=== PATIENT | male | born 1975 | race Caucasian/White ===

== ENCOUNTER 2016-10-16 09:12 | Emergency (ER) | payer BC ==
--- OUTSIDE RECORDS SUMMARY | 2016-10-16 10:22 | XMS REPORT | CCD ---
:1975 Author Name AYLIN CASTELLON Address [address] Unavailable [place], [place] [id number] Care Team Providers Name Role Phone ADY CORCORAN Attending Physician Unavailable Vital Signs Unknown or Not Available. Allergies Allergy Code Allergy Type Reaction Status SULFA (sulfonamide) 0 Drug allergy Active Procedures Procedure Code Procedure Type Date SHOULDER 2 OR 3 VWS [place] [id number] [address] 03/03/2015 History of Immunizations Unknown or Not Available. Problems Unknown or Not Available. Results Unknown or Not Available. Active Medications Unknown or Not Available. Medications Administered During Visit Unknown or Not Available. Encounters Encounter Diagnosis Diagnosis Code Start Date Impingement syndrome of right shoulder [id number] 03/03/2015 Social History Smoking Status Code Start Date End Date Former smoker [id number] Patient Decision Aids Unknown or Not Available. Discharge Instructions You were admitted to [facility] on 03/03/2015 with a principal diagnosis of Impingement syndrome of right shoulder. You were discharged from [facility] on 03/03/2015. Should you have any questions prior to discharge, please contact a member of your healthcare team. If you have left the hospital and have any questions, please contact your primary care physician. Chief Complaint and Reason For Visit Unknown or Not Available. Function Status Unknown or Not Available. Plan of Care Unknown or Not Available. Referral/Transition of Care Unknown or Not Available.
[2016-10-16] MEDS ORDERED: DIATRIZOATE MEGLU/DIATRIZO SOD 30 ML BTL ONE (10:38)
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
[2016-10-16 10:44] LABS: Hematocrit 46.4 % (42.0-52.0); Hemoglobin 15.8 gm/dL (13.5-18.0); Mean Cell Volume 87.7 fl (78-100); Mean Corpuscular Hemoglobin 29.9 pg (27-31); Mean Corpuscular Hgb Conc 34.1 g/dl (32-36); Mean Platelet Volume 11.1 fl (6.0-9.5); Neutrophil # 5.3 K/mm3 (1.3-6.0); Neutrophil % 64.1 % (42-75.0); Platelet Count 206 K/mm3 (150-450); Red Blood Count 5.29 M/mm3 (4.7-6.0); Red Cell Distribution Width 13.3 % (11.5-14.0); White Blood Count 8.2 K/mm3 (4.0-10.5)
[2016-10-16] MEDS ORDERED: DIATRIZOATE MEGLU/DIATRIZO SOD 30 ML BTL PO ONE (10:44)
[2016-10-16 10:58] LABS: Anion Gap 10.6 mmol/L (6.8-13.8); BUN/Creatinine Ratio 8.3 (9.0-21.6); Bilirubin, Total 0.6 mg/dL (0.0-1.1); CRP 0.5 mg/dL (0.0-0.9); Ca. Corrected For Albumin 9.4 mg/dL (8.4-10.2); Calcium * 9.7 mg/dL (7.9-10.9); Carbon Dioxide 30.2 mmol/L (24-32.6); Potassium 4.8 mmol/L (3.4-4.6); Total Protein 7.8 gm/dL (6.2-8.2)
[2016-10-16 13:18] VITALS: BP 148/85
[2016-10-16 13:33] LABS: Urine Appearance Clear; Urine Bilirubin Negative (NEGATIVE); Urine Blood Negative /ul (NEGATIVE); Urine Color Yellow; Urine Ketone Negative (NEGATIVE); Urine Nitrite Negative (NEGATIVE); Urine Protein Negative (NEGATIVE); Urine Specific Gravity 1.005 SP.GR. (1.005-1.030); Urine Urobilinogen Normal (NORMAL)
[2016-10-16 13:34] LABS: Urine Bacteria None Seen; Urine RBC None Seen /hpf (0-5); Urine WBC None Seen /hpf (0-5)
== END 2016-10-16 13:58 | disposition home or self-care (01) ==
LOC: MERGE 09:12 → ER 09:12
DX: R10.32 Left lower quadrant pain (principal); R19.7 Diarrhea, unspecified; K21.9 Gastro-esophageal reflux disease without esophagitis; F41.9 Anxiety disorder, unspecified; Z72.0 Tobacco use

== ENCOUNTER 2017-02-14 13:11 | Emergency (ER) | payer OTHER, BC ==
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
[2017-02-14 15:14] VITALS: BP 127/81
== END 2017-02-14 14:35 | disposition home or self-care (01) ==
LOC: ER 13:11
DX: S42.024A Nondisplaced fracture of shaft of right clavicle, initial encounter for closed fracture (principal); S43.401A Unspecified sprain of right shoulder joint, initial encounter; X58.XXXA Exposure to other specified factors, initial encounter; Y93.89 Activity, other specified; Y92.410 Unspecified street and highway as the place of occurrence of the external cause; Y99.0 Civilian activity done for income or pay; K21.9 Gastro-esophageal reflux disease without esophagitis; F41.9 Anxiety disorder, unspecified

== ENCOUNTER 2018-05-22 10:28 | Observation (INO) ==
[2018-05-22] MEDS ORDERED: KETOROLAC TROMETHAMINE 30 MG/ML VIAL IV ONE (10:51)
[2018-05-22] MEDS ORDERED: DIATRIZOATE MEGLUMINE, SODIUM 30 ML BTL PO ONE (10:51)
[2018-05-22] MEDS ORDERED: ONDANSETRON HCL/PF 2 MG/ML VIAL IV ONE (10:51)
--- NOTE | 2018-05-22 10:57 | ERNOTE ---
Abdominal HPI - General Chief Complaint: Abdominal Pain Time Seen by Provider: 05/22/18 10:42 Source: patient Exam Limitations: no limitations - Immun/Allergies/Home Medications Immunizatons: IMMUNIZATION HX Immunizations Up to Date Yes History of Influenza Vaccine No Hx Pneumococcal Vaccination No Allergies/Adverse Reactions: Allergies Sulfa (Sulfonamide Antibiotics) Allergy (Unknown, Verified 05/22/18 10:40) unknown Home Medications: HOME MEDICATIONS ALPRAZolam [Xanax] 0.5 mg PO Q6H PRN 11/16/17 [Last Taken 11/16/17] clonazePAM [Klonopin] 1 mg PO DAILY 11/16/17 [Last Taken 11/15/17] - History of Present Illness Narrative: Patient started to have midabdominal pain around 03:00, the pain moved to his right lower quadrant, he is nauseated, no vomiting. He had two prior episodes of early appendicitis, last in 2016 and was treated with antibiotics and symptoms resolved, symptoms feel the same as with prior episodes. Date (Duration): 05/22/18 Time (Timing): 03:00 Timing: constant Quality: moderate, burning, sharpness Activities at Onset: none Modifying Factors - (Improves): Present: other - nothing Modifying Factors - (Worsens): Present: breathing, movement Associated Symptoms: Present: nausea. Absent: chest pain, fever/chills, vomiting, shortness of breath Prior Abdominal Problems: Present: similar symptoms Review of Systems - Review of Systems Constitutional: Absent: recent illness, fever ENT: Absent: nose congestion, sore throat Respiratory: Absent: shortness of breath, cough Cardiology: Absent: chest pain Gastrointestinal/Abdominal: Present: nausea, diarrhea - losse BM once. Absent: vomiting Genitourinary: Present: no symptoms reported Musculoskeletal: Absent: back pain Skin: Absent: rash Neurological: Absent: headache Medical History (Last Reviewed 05/22/18 @ 10:56 by Caroline Garcia MD) Clavicle fracture x3 Left ureteral stone Right kidney stone Shoulder sprain Tobacco use 1pp month live alone nervous stomach Arthritis Onset Date: Unknown Asthma Onset Date: Unknown Common migraine Onset Date: Unknown Constipation Onset Date: Unknown Hx of tuberculosis Onset Date: Unknown Surgical History: Surgical History (Last Reviewed 05/22/18 @ 10:56 by Caroline Garcia MD) H/O colonoscopy H/O esophagogastroduodenoscopy H/O lithotripsy Family History: Family History (Last Reviewed 05/22/18 @ 16:23 by Tremaine Paige CRNA) Sister Colon cancer Kidney stone Grandmother No problems noted. Uncle No problems noted. Mother Hypertension Father Kidney stone Hypertension Sister Kidney stone Alive and well Grandfather Myocardial infarction Social History: Preferred Language Setswana Do you have any catholic or No cultural preference? Abuse History No History of abuse Psych History Currently on Meds,Hx of Anxiety Alcohol Use rarely Drug Use none (Last Updated 12/30/17 @ 13:35 by GRACE Acosta) No Social History Section defined Physical Exam - Physical Exam General Appearance: Present: wd/wn, alert, no apparent distress Respiratory: Present: no respiratory distress, normal breath sounds, no accessory muscle use, lungs clear Cardiovascular/Chest: Present: regular rate, rhythm, no murmur Gastrointestinal/Abdominal: Present: normal bowel sounds, nondistended, soft, tenderness - RLQ, guarding, McBurney sign. Absent: Obturator sign, Psoas sign Back Exam: Present: no CVA tenderness Extremity Exam: Present: no edema Neurological Exam: Present: alert, oriented, normal mood/affect Skin Exam: Present: normal color, warm/dry Progress - Results and Orders Patient's Lab Results:: I have reviewed the patient's lab results. - Vital Signs Patient's Vital Signs:: I have reviewed the patient's vital signs. Vital Signs: Vital Signs 05/22/18 10:35 Temperature 36.0 C Pulse Rate 81 Respiratory Rate 20 Blood Pressure 153/100 H - CT/Ultrasound CT/Ultrasound Narrative: CT findings compatible with acute appendicitis without evidence for perforation or abscess. - Progress/Reassessment Chief Complaint: Abdominal Pain Progress Note-Subjective: 05/22/18 12:59 patient comfortable after pain meds, tolerated contrast explained delay as CT is down 05/22/18 14:[address] results [address] Dr Spencer 05/22/18 14:[address] and diagnosis with patient Departure Clinical Impression: Appendicitis Qualifiers: Appendicitis type: acute appendicitis Acute appendicitis type: with localized peritonitis Appendicitis gangrene presence: without gangrene Appendicitis perforation presence: without perforation Appendicitis abscess presence: unspecified whether abscess present Qualified Code(s): K35.30 - Acute appendicitis with localized peritonitis, without perforation or gangrene - Departure Disposition: Still a patient Condition: Stable
[2018-05-22 11:05] LABS: Hematocrit 46.3 % (42.0-52.0); Hemoglobin 15.6 gm/dL (13.5-18.0); Mean Cell Volume 88.5 fl (78-100); Mean Corpuscular Hemoglobin 29.8 pg (27-31); Mean Corpuscular Hgb Conc 33.7 g/dl (32-36); Mean Platelet Volume 11.1 fl (8-11.3); Neutrophil # 8.3 K/mm3 (1.3-6.0); Neutrophil % 75.5 % (42-75.0); Platelet Count 208 K/mm3 (150-450); Red Blood Count 5.23 M/mm3 (4.7-6.0)
[2018-05-22 11:09] LABS: Urine Bilirubin Negative (NEGATIVE); Urine Blood Negative /ul (NEGATIVE); Urine Ketone Negative (NEGATIVE); Urine Nitrite Negative (NEGATIVE); Urine Protein Negative (NEGATIVE); Urine Specific Gravity 1.025 SP.GR. (1.005-1.030); Urine Urobilinogen Normal (NORMAL)
[2018-05-22 11:20] LABS: Albumin * 4.1 gm/dl (3.4-5.0); Anion Gap 13.9 mmol/L (6.8-13.8); BUN/Creatinine Ratio 11.2 (9.0-21.6); Bilirubin, Total 0.7 mg/dL (0.0-1.1); Ca. Corrected For Albumin 10.1 mg/dL (8.4-10.2); Calcium * 10.5 mg/dL (7.9-10.9); Carbon Dioxide 27.1 mmol/L (24-32.6); Total Protein 7.8 gm/dL (6.2-8.2)
[2018-05-22 11:20] LABS: Urine Appearance Clear (CLEAR); Urine Bacteria None Seen; Urine Color Yellow; Urine RBC None Seen /hpf (0-5); Urine WBC None Seen /hpf (0-5)
[2018-05-22] MEDS ORDERED: metroNIDAZOLE/SODIUM CHLORIDE 500 MG/100 ML BAG IV ONE (14:54)
[2018-05-22] MEDS ORDERED: NORMAL SALINE 1,000 ML IV ONE (14:59)
[2018-05-22] MEDS ORDERED: LEVOFLOXACIN IN DEXTROSE 5 % 500 MG/100 ML BAG IV SCH ×2 (15:00→17:54)
--- NOTE | 2018-05-22 15:02 | HP ---
Chief Complaint - Chief Complaint Date of Service: 05/22/18 Time of Service: 14:55 Chief Complaint: acute appendicitis History of Present Illness: Sampson is a pleasant 43 yo who developed abd pain last night around 3am. It has moved and worsened in the right lower quadrant. He has had diarrhea. He states he was told before he had early appendicitis and it could be treated with antibiotics, but may reoccur. He would like to have his appendix removed. His sister has a history of colon cancer and his colonoscopy is up to date. Medical History (Last Reviewed 05/22/18 @ 10:56 by Caroline Garcia MD) Clavicle fracture x3 Left ureteral stone Right kidney stone Shoulder sprain Tobacco use 1pp month live alone nervous stomach Arthritis Onset Date: Unknown Asthma Onset Date: Unknown Common migraine Onset Date: Unknown Constipation Onset Date: Unknown Hx of tuberculosis Onset Date: Unknown Surgical History: Surgical History (Last Reviewed 05/22/18 @ 10:56 by Caroline Garcia MD) H/O colonoscopy H/O esophagogastroduodenoscopy H/O lithotripsy Family History: Family History (Last Reviewed 05/22/18 @ 10:41 by Keely Rosario RN) Sister Colon cancer Kidney stone Grandmother No problems noted. Uncle No problems noted. Mother Hypertension Father Kidney stone Hypertension Sister Kidney stone Alive and well Grandfather Myocardial infarction Social History: Preferred Language Hungarian Do you have any restoration or No cultural preference? Abuse History No History of abuse Psych History Currently on Meds,Hx of Anxiety Alcohol Use rarely Drug Use none (Last Updated 12/30/17 @ 13:35 by GRACE Acosta) No Social History Section defined Review Of Systems (GEN) - Review of Systems Generalized/Overall Review: Present: Malaise EENTM: Present: No Symptoms Reported Respiratory: Present: No Symptoms Reported Cardiac: Present: No Symptoms Reported Abdominal: Present: Nausea, Abdominal Pain, Diarrhea Genitourinary: Present: No Symptoms Reported Musculoskeletal: Present: No Symptoms Reported Neurological: Present: No Symptoms Reported Skin: Present: No Symptoms Reported Endocrine: Present: No Symptoms Reported Misc: All systems neg except as marked Immunizations: IMMUNIZATION HX Immunizations Up to Date Yes History of Influenza Vaccine No Hx Pneumococcal Vaccination No Allergies/Adverse Reactions: Allergies Allergy/AdvReac Type Severity Reaction Status Date / Time Sulfa (Sulfonamide Allergy Unknown unknown Verified 05/22/18 10:40 Antibiotics) Home Medications: HOME MEDICATIONS ALPRAZolam [Xanax] 0.5 mg PO Q6H PRN 11/16/17 [Last Taken 11/16/17] clonazePAM [Klonopin] 1 mg PO DAILY 11/16/17 [Last Taken 11/15/17] Exam - Exam Vital Signs: Vital Signs - Last Taken Temp 36.0 C 05/22/18 10:35 Pulse 58 L 05/22/18 14:30 Resp 17 05/22/18 14:30 BP 111/68 05/22/18 14:30 Pulse Ox 95 05/22/18 14:30 Constitutional: Present: Alert, Oriented x3, Cooperative ENT Exam: Present: hearing grossly normal Neck: Present: supple Breasts: Present: Exam deferred Respiratory: Present: lungs clear, normal breath sounds Cardiovascular/Chest: Present: regular rate, rhythm Abdomen: Present: Normal bowel sounds, soft, nondistended /Rectal: Present: Exam deferred Extremity: Present: normal range of motion Skin Exam: Present: normal color Neurologic: Present: equipment operat0r II-XII nml as tested Appearance: Present: appropriate appearance Eye contact: Present: cooperative, good eye contact Thoughts: Present: normal thought pattern Diagnostic Studies: Abnormal Lab Results 05/22/18 05/22/18 Range/Units 10:59 10:59 WBC 11.0 H (4.0-10.5) K/mm3 Immature Gran # (Auto) 0.04 H (0.000-0.0310) K/mm3 Neutrophils % 75.5 H (42-75.0) % Lymphocytes % 14.6 L (20-51) % Neutrophils # 8.3 H (1.3-6.0) K/mm3 Anion Gap 13.9 H (6.8-13.8) mmol/L Random Glucose 115 H (70-110) mg/dL Laboratory Results WBC 11.0 K/mm3 (4.0-10.5) H 05/22/18 10:59 RBC 5.23 M/mm3 (4.7-6.0) 05/22/18 10:59 Hgb 15.6 gm/dL (13.5-18.0) 05/22/18 10:59 Hct 46.3 % (42.0-52.0) 05/22/18 10:59 MCV 88.5 fl (78-100) 05/22/18 10:59 MCH 29.8 pg (27-31) 05/22/18 10:59 MCHC 33.7 g/dl (32-36) 05/22/18 10:59 RDW 13.0 % (11.5-14.0) 05/22/18 10:59 Plt Count 208 K/mm3 (150-450) 05/22/18 10:59 MPV 11.1 fl (8-11.3) 05/22/18 10:59 Immature Gran % (Auto) 0.40 % (0.001-0.429) 05/22/18 10:59 Immature Gran # (Auto) 0.04 K/mm3 (0.000-0.0310) H 05/22/18 10:59 Neutrophils % 75.5 % (42-75.0) H 05/22/18 10:59 Lymphocytes % 14.6 % (20-51) L 05/22/18 10:59 Monocytes % 7.3 % (0.0-9) 05/22/18 10:59 Eosinophils % 1.7 % (0.0-3.0) 05/22/18 10:59 Basophils % 0.5 % (0.0-1.0) 05/22/18 10:59 Nucleated RBC % 0.0 k/mm3 (0-1) 05/22/18 10:59 Neutrophils # 8.3 K/mm3 (1.3-6.0) H 05/22/18 10:59 Lymphocytes # 1.61 k/mm3 (1.5-3.5) 05/22/18 10:59 Monocytes # 0.8 k/mm3 (0.0-1.0) 05/22/18 10:59 Eosinophils # 0.2 k/mm3 (0.0-0.7) 05/22/18 10:59 Absolute Basophils 0.1 k/mm3 (0.0-0.1) 05/22/18 10:59 Sodium 141 mmol/L (132-142) 05/22/18 10:59 Plasma Sodium 141 mmol/L (130-142) 05/22/18 10:59 Potassium 4.0 mmol/L (3.4-4.6) 05/22/18 10:59 Chloride 104 mmol/L (97-106) 05/22/18 10:59 Carbon Dioxide 27.1 mmol/L (24-32.6) 05/22/18 10:59 Anion Gap 13.9 mmol/L (6.8-13.8) H 05/22/18 10:59 BUN 15 mg/dL (6-23) 05/22/18 10:59 Creatinine 1.34 mg/dL (0.4-1.4) D 05/22/18 10:59 Est GFR (Non-Af Amer) 62 mL/min (60-130) D 05/22/18 10:59 BUN/Creatinine Ratio 11.2 (9.0-21.6) 05/22/18 10:59 Random Glucose 115 mg/dL (70-110) H 05/22/18 10:59 Calcium 10.5 mg/dL (7.9-10.9) 05/22/18 10:59 Calcium Adj for Albumin 10.1 mg/dL (8.4-10.2) 05/22/18 10:59 Total Bilirubin 0.7 mg/dL (0.0-1.1) 05/22/18 10:59 AST 29 U/L (0-48) 05/22/18 10:59 ALT 52 U/L (19-67) 05/22/18 10:59 Alkaline Phosphatase 114 U/L (50-170) 05/22/18 10:59 Total Protein 7.8 gm/dL (6.2-8.2) 05/22/18 10:59 Albumin 4.1 gm/dl (3.4-5.0) 05/22/18 10:59 Urine Color Yellow 05/22/18 10:57 Urine Appearance Clear (CLEAR) 05/22/18 10:57 Urine pH 6.0 pH (5.0-7.0) 05/22/18 10:57 Ur Specific [place] 1.025 SP.GR. (1.005-1.030) 05/22/18 10:57 Urine Protein Negative mg/dL (NEGATIVE) 05/22/18 10:57 Urine Glucose (UA) Negative mg/dL (NEGATIVE) 05/22/18 10:57 Urine Ketones Negative mg/dL (NEGATIVE) 05/22/18 10:57 Urine Blood Negative /ul (NEGATIVE) 05/22/18 10:57 Urine Nitrate Negative (NEGATIVE) 05/22/18 10:57 Urine Bilirubin Negative mg/dl (NEGATIVE) 05/22/18 10:57 Urine Urobilinogen Normal EU/dl (NORMAL) 05/22/18 10:57 Ur Leukocyte Esterase Negative /ul (NEGATIVE) 05/22/18 10:57 Urine RBC None seen /hpf (0-5) 05/22/18 10:57 Urine WBC None seen /hpf (0-5) 05/22/18 10:57 Ur Epithelial Cells None seen /hpf (0-5) 05/22/18 10:57 Urine Bacteria None seen (NONE) 05/22/18 10:57 Urine Culture Comments No culture indicated 05/22/18 10:57 Assessment/Plan - Narrative Narrative: Will plan for OR for lap poss open appendectomy. risks and benefits discussed. would like to proceed. - Assessment/Plan (1) Acute appendicitis Problem: Acute [facility] - Past Medical History [facility] Narrative: sister colon cancer
--- NOTE | 2018-05-22 16:23 | ANES ---
Anesthesia Pre Procedure Eval Vitals/Labs: Last Vital Signs Temp 36.6 C 05/22/18 15:56 Pulse 65 05/22/18 15:56 Resp 16 05/22/18 15:56 BP 118/75 05/22/18 15:56 Pulse Ox 95 05/22/18 15:56 HOME MEDICATIONS ALPRAZolam [Xanax] 0.5 mg PO Q6H PRN 11/16/17 [Last Taken 11/16/17] clonazePAM [Klonopin] 1 mg PO DAILY 11/16/17 [Last Taken 11/15/17] Allergies/Adverse Reactions: Allergies Allergy/AdvReac Type Severity Reaction Status Date / Time Sulfa (Sulfonamide Allergy Unknown unknown Verified 05/22/18 10:40 Antibiotics) - Planned Procedure Planned Procedure: Lap appy Medication List Reviewed:: Yes Allergies Verified: Yes Medical History (Last Reviewed 05/22/18 @ 16:22 by Tremaine Paige CRNA) Clavicle fracture x3 Left ureteral stone Right kidney stone Shoulder sprain Tobacco use 1pp month live alone nervous stomach Arthritis Onset Date: Unknown Asthma Onset Date: Unknown Common migraine Onset Date: Unknown Constipation Onset Date: Unknown Hx of tuberculosis Onset Date: Unknown Surgical History (Last Reviewed 05/22/18 @ 16:22 by Tremaine Piage CRNA) H/O colonoscopy H/O esophagogastroduodenoscopy H/O lithotripsy Family History (Last Reviewed 05/22/18 @ 16:23 by Tremaine Paige CRNA) Sister Colon cancer Kidney stone Grandmother No problems noted. Uncle No problems noted. Mother Hypertension Father Kidney stone Hypertension Sister Kidney stone Alive and well Grandfather Myocardial infarction - Family Anesthesia History Family History:: no untoward family reactions to anesthesia, no familial bleeding tendencies, no family history of clotting disorders, no family history of premature - Airway/Neck/Teeth Within Normal Limits:: Yes Teeth Condition: intact Mallampatti Score: 1 Thyromental (T-M) distance: > 6 cm Mandibulo Hyoid distance: > 3 cm - Respiratory Respiratory Physical: lungs clear Smoking Status: Former smoker Discussed smoking cessation including day of surgery: No Sleep Apnea currently treated: No Sleep Apnea by current assessment: Yes Discussed Risks/Treatment of JESSICA: Yes - Cardiovascular Tolerate Activity: Good Heart Sounds: S1 & S2, Regular - Anesthesia Assessment and Plan ASA Class: PS, II, E Anesthesia Type Plan: General ET
[2018-05-22] MEDS ORDERED: HYDROcodone/ACETAMINOPHEN 1 EACH TABLET PO PRN (16:52)
[2018-05-22] MEDS ORDERED: ONDANSETRON HCL/PF 2 MG/ML VIAL IV PRN (16:52)
[2018-05-22] MEDS ORDERED: HYDROmorphone HCL 1 MG/ML DISP.SYRIN IV PRN (16:52)
[2018-05-22] MEDS ORDERED: BUPIVACAINE HCL/PF 30 ML VIAL IJ ONE (17:24)
--- NOTE | 2018-05-22 17:30 | OR ---
Operative Report - Dictated Report Narrative: Date of Service: 05/22/18 Procedure: laparoscopic appendectomy Pre-procedure diagnosis: acute appendicitis Post-procedure diagnosis: same Surgeon: Dr. Kait Spencer Anesthesia: general Indication for procedure: Sampson is a very pleasant 43-year-old gentleman who was found to have acute appendicitis Description of procedure: After appropriate informed consent was obtained patient was taken to the operating room, placed in the supine position. General anesthesia was achieved. The RN placed a Wilkes catheter. The patient was prepped and draped in the usual sterile fashion. A 5 mm periumbilical incision was made, hemostat was used to dissect down to the fascia. A Veress needle was inserted, a saline drop test was performed which was satisfactory. The abdomen was insufflated to 15 mmHg. A 5mm blunt trocar was placed at the umbilicus. The camera was inserted, there was no evidence of a trocar injury. A 12 mm trocar was placed in the left lower quadrant of the abdomen. A 5 mm trocar was placed in the suprapubic region. The patient was placed in a head down, rotated left position, to facilitate exposure. The appendix was identified, it appeared consistent with acute appendicitis. A window was made in the mesoappendix. The 45 mm echelon stapler with the white load was placed across the base of the appendix. There was good hemostasis. The echelon 45 mm stapler with a white load load was then placed across the mesoappendix. There was good hemostasis. The appendix was removed through an Endo Catch bag. The abdomen was inspected and the staple lines were intact, with good hemostasis. The remainder of the abdomen was inspected and was satisfactory. The 12 mm trocar site was closed with an 0 Vicryl suture using a PMI device. The abdomen was desufflated. Local anesthetic was injected. The incisions were closed with inverted interrupted 4- 0 Monocryl sutures. Mastisol and Steri-Strips were applied. The patient tolerated the procedure well and was transported to the PACU in satisfactory condition. Estimated blood loss: minimal Complications: none Specimens to pathology: appendix Disposition: The patient will be admitted to the floor for observation.
--- NOTE | 2018-05-22 17:48 | ANES ---
Post Anesthesia Discharge - Transfer of Care Transfer of Care handoff given to nurse: Yes - Discharge from PACU Discharge from PACU when meets criteria: Yes - Discharge to ASU Discharge to ASU-no complications/pt stable: Yes
--- NOTE | 2018-05-22 17:48 | ANES ---
Post Anesthesia Assessment - Vital Signs Vitals: Last Vital Signs Temp 36.6 C 05/22/18 15:56 Pulse 65 05/22/18 15:56 Resp 16 05/22/18 15:56 BP 118/75 05/22/18 15:56 Pulse Ox 95 05/22/18 15:56 Airway Patency: Normal - Mental Status Level Of Consciousness: Awake - Pain Level Pain Score: 0 - N/V Assessment Nausea/Vomiting Presence: None Dehydration:: No
[2018-05-22] MEDS: POTASSIUM CHLORIDE 20 MEQ in DEXTROSE 5%-0.5 NORMAL SALINE 990 ML IV SCH (18:05)
[2018-05-22] MEDS ORDERED: RINGER'S SOLUTION,LACTATED 1,000 ML IV PRN (18:07)
[2018-05-23] MEDS: POTASSIUM CHLORIDE 20 MEQ in DEXTROSE 5%-0.5 NORMAL SALINE 990 ML IV SCH (04:00)
--- NOTE | 2018-05-23 06:52 | DS ---
Description of Stay: Sampson is a very pleasant 43-year-old gentleman who came in through the emergency room. He had abdominal pain, he underwent a CT scan which showed acute appendicitis. He underwent laparoscopic appendectomy. Surgery was uneventful. He recovered well, and is ready for discharge. Procedures Performed: see notes below List Procedures: Laparoscopic appendectomy Results and Findings: Lab Pending Results 05/22/18 10:57: Urine Color Yellow, Urine Appearance Clear, Urine pH 6.0, Ur Specific [place] 1.025, Urine Protein Negative, Urine Glucose (UA) Negative, Urine Ketones Negative, Urine Blood Negative, Urine Nitrate Negative, Urine Bilirubin Negative, Urine Urobilinogen Normal, Ur Leukocyte Esterase Negative, Urine RBC None seen, Urine WBC None seen, Ur Epithelial Cells None seen, Urine Bacteria None seen, Urine Culture Comments No culture indicated 05/22/18 10:59: WBC 11.0 H, RBC 5.23, Hgb 15.6, Hct 46.3, MCV 88.5, MCH 29.8, MCHC 33.7, RDW 13.0, Plt Count 208, MPV 11.1, Immature Gran % (Auto) 0.40, Immature Gran # (Auto) 0.04 H, Neutrophils % 75.5 H, Lymphocytes % 14.6 L, Monocytes % 7.3, Eosinophils % 1.7, Basophils % 0.5, Nucleated RBC % 0.0, Neutrophils # 8.3 H, Lymphocytes # 1.61, Monocytes # 0.8, Eosinophils # 0.2, Absolute Basophils 0.1 05/22/18 10:59: Sodium 141, Plasma Sodium 141, Potassium 4.0, Chloride 104, Carbon Dioxide 27.1, Anion Gap 13.9 H, BUN 15, Creatinine 1.34 D, Est GFR (Non- Af Amer) 62 D, BUN/Creatinine Ratio 11.2, Random Glucose 115 H, Calcium 10.5, Calcium Adj for Albumin 10.1, Total Bilirubin 0.7, AST 29, ALT 52, Alkaline Phosphatase 114, Total Protein 7.8, Albumin 4.1 05/22/18 17:50: Pathology Specimen Spec to path Discharge Location: Home Disposition: Home self-care Condition: Stable Face to Face Encounter completed per [facility] Guidelines: No Discharge Activity: Activity as tolerated Discharge Diet: General/regular food Complete Home Medications List: Complete Home Medication List: ALPRAZolam [Xanax] 0.5 mg PO Q6H PRN 11/16/17 clonazePAM [Klonopin] 1 mg PO DAILY 11/16/17 HYDROcodone/ACETAMINOPHEN [[place] 5-325] 2 each PO Q6H PRN tablet 05/23/18
[2018-05-23 09:32] VITALS: BP 104/60
== END 2018-05-23 10:15 | disposition home or self-care (01) ==
LOC: ER 10:28 → AMB 15:54 → MS 15:54 → AMB 16:30 → MS 17:14
PROVIDERS: ADMIT Surgery; ATTEND Surgery
CPT/HCPCS: 36415; 74177; 80053; 81001; 85025; 88304; 96365; 96375; 99285; G0378; J2405